=== PATIENT | male | born 1995 | race Caucasian/White ===

== ENCOUNTER 2018-09-10 03:07 | Emergency (ER) | payer OTHER ==
--- NOTE | 2018-09-10 03:27 | ED Physician Documentation ---
PD HPI HEAD INJURY - Stated complaint Stated Complaint: HEAD LAC - Chief complaint Chief Complaint: Trauma Hd/Nk - History obtained from History obtained from: Patient - History of Present Illness Mechanism of head injury: Fell Where head injury occurred: Street Timing - onset: Enter time (23:00) Pain level now: 0 Location of injury: Right Associated symptoms: No: LOC, AMS, Nausea / vomiting, Neck pain Recently seen: Not recently seen - Additional information Additional information: while walking home tonight at approximately 11 PM, tripped and fell, struck face on paved surface, sustaining multiple facial lacerations. denies LOC, denies pain Review of Systems Eyes: reports: Reviewed and negative Ears: reports: Reviewed and negative Nose: denies: Epistaxis Skin: reports: Laceration (s) Musculoskeletal: denies: Neck pain Neurologic: reports: Head injury. denies: Headache, LOC PD PAST MEDICAL HISTORY - Past Medical History Past Medical History: No Cardiovascular: None Respiratory: None Neuro: None Endocrine/Autoimmune: None GI: None : None HEENT: None Psych: None Musculoskeletal: None Derm: None - Past Surgical History Past Surgical History: No - Present Medications Home Medications: Ambulatory Orders Medication Instructions Recorded Confirmed Cephalexin [Keflex] 500 mg PO Q6HR #20 capsule 09/10/18 - Allergies Allergies/Adverse Reactions: Allergies Allergy/AdvReac Type Severity Reaction Status Date / Time No Known Drug Allergies Allergy Verified 09/10/18 03:17 - Social History Does the pt smoke?: Yes Smoking Status: Current every day smoker Does the pt drink ETOH?: Yes Does the pt have substance abuse?: No - Immunizations Immunizations are current?: Yes - POLST Patient has POLST: No PD ED PE NORMAL - Vitals Vital signs reviewed: Yes - General General: Alert and oriented X 3, No acute distress, Well developed/nourished - HEENT HEENT: PERRL, EOMI - Neck Neck: No bony TTP PD ED PE EXPANDED - HEENT HEENT: Other (four lacerations as diagrammed below (2 cm lac supraorbit, 2.5 cm "L"-shaped laceration with horizontal component on right upper eyelid as well as a vertical component lateral to right eye, and two more lacerations that are parallel to the vertical component of the "L"-shaped laceration)) HEENT Visual: 1 - laceration (2.5 cm "z"-shaped laceration without bony tenderness) 2 - laceration (1.5 cm horizontal component to "L"-shaped laceration (this is c ontiguous with laceration 3)) 3 - laceration (1 cm (contiguous with laceration 2)) 4 - laceration (1 cm, vertical) 5 - laceration (0.5 cm vertical laceration) Results - Vitals Vitals: Oxygen O2 Source Room air Procedures - Laceration (location) Face Length in cm: 6.5 (total length of 4 lacerations) Wound type: Contaminated (small particulate matter removed from supraorbital laceration; other lacerations are clean) Neurovascular status: Sensory intact, Motor intact, Vascular intact Anesthesia: Lidocaine 1% Wound Preparation: Chlorhexadine, Irrigated copiously NS, Wound explored, To the base Skin layer closure: Nylon, Other (supraorbital laceration repaired with combination of 5-0 nylon and 6-0 nylon. remainder of lacerations repaired with 6-0 nylon. combination of running and simple interrupted sutures were used) Other: Patient tolerated well, No complications, Neurovascular intact, Dressing applied, Tetanus UTD Complexity: Simple PD MEDICAL DECISION MAKING - ED course Complexity details: considered differential, d/w patient Departure - Departure Disposition: 01 Home, Self Care Clinical Impression: Laceration Condition: Good Instructions: ED Laceration Facial Sutr Tape Follow-Up: [facility] [Provider Group] Prescriptions: Cephalexin [Keflex] 500 mg PO Q6HR #20 capsule Comments: Do not work until cleared to do so by your primary care provider. You should have the wound rechecked in 2-3 days by your primary care provider. The stitches should be removed in 7 days by your primary care provider, although they might extend this recommendation based on how the wound appears on reevaluation. Forms: Activity restrictions Discharge Date/Time: 09/10/18 05:58
[2018-09-10] MEDS ORDERED: LIDOCAINE 1% 2 ML VIAL SUBQ STA (03:45)
[2018-09-10] MEDS ORDERED: BACITRACIN OINT TOP STA (05:46)
[2018-09-10] MEDS ORDERED: cephALEXin 250 MG CAPSULE PO STA (05:46)
[2018-09-10 05:50] VITALS: BP 125/83
== END 2018-09-10 05:58 | disposition home or self-care (01) ==
LOC: ED 03:07
DX: S01.121A Laceration with foreign body of right eyelid and periocular area, initial encounter (principal); S01.111A Laceration without foreign body of right eyelid and periocular area, initial encounter; S01.81XA Laceration without foreign body of other part of head, initial encounter; W01.0XXA Fall on same level from slipping, tripping and stumbling without subsequent striking against object, initial encounter; Y93.01 Activity, walking, marching and hiking; Y92.410 Unspecified street and highway as the place of occurrence of the external cause; F17.200 Nicotine dependence, unspecified, uncomplicated
CPT/HCPCS: 12013; 12051; 99283; A9270

== ENCOUNTER 2019-08-09 10:30 | Emergency (ER) | payer OTHER ==
[2019-08-09 10:41] VITALS: BP 126/77
--- NOTE | 2019-08-09 12:28 | ED Physician Documentation ---
PD HPI LOWER EXT INJURY - Stated complaint Stated Complaint: KNEE PX - Chief complaint Chief Complaint: Ext Problem - History obtained from History obtained from: Patient - History of Present Illness PD HPI LOW EXT INJURY LOCATION: Left, Knee Type of injury: Blunt / blow (he states he struck just top of patellar area yesterday with edge of a box of toys he was carrying. It hurt locally short term, then felt okay. He was able to walk normally today and ran a mile with just some mild discomfort. Then he was squatting under a plane at work and lifted a battery or such in squatted position and felt onset of sharp pain in same area. No pop nor feeling of giving out. That area still hurts when he squats or bends the knee and tries to stand back up.) Timing - onset: Yesterday (with recurrent significant pain today couple hours ago.) Timing - details: Abrupt onset Worsened by: Moving (extending knee from flexed position.), Palpating Associated symptoms: No: Weakness, Numbness, Swelling, Discolored Similar symptoms before: Has not had sx before Recently seen: Not recently seen ([facility] Review of Systems Skin: denies: Rash, Abrasion (s), Laceration (s) Musculoskeletal: denies: Extremity swelling Neurologic: denies: Focal weakness, Numbness PD PAST MEDICAL HISTORY - Past Medical History Cardiovascular: None Respiratory: None Neuro: None Endocrine/Autoimmune: None GI: None : None HEENT: None Psych: None Musculoskeletal: None Derm: None - Past Surgical History Past Surgical History: No - Present Medications Home Medications: Ambulatory Orders Medication Instructions Recorded Confirmed Cephalexin [Keflex] 500 mg PO Q6HR #20 capsule 09/10/18 Naproxen 500 mg PO BID #20 tablet 08/09/19 - Allergies Allergies/Adverse Reactions: Allergies Allergy/AdvReac Type Severity Reaction Status Date / Time No Known Drug Allergies Allergy Verified 08/09/19 10:37 - Social History Does the pt smoke?: Yes Smoking Status: Current every day smoker Does the pt drink ETOH?: Yes Does the pt have substance abuse?: No - Immunizations Immunizations are current?: Yes - POLST Patient has POLST: No PD ED PE NORMAL - Vitals Vital signs reviewed: Yes - General General: Alert and oriented X 3, No acute distress, Well developed/nourished - Derm Derm: Normal color, Warm and dry - Extremities Extremities: Other (left upper patella/suprapatellar area laterally with localized tenderness. No effusion. Patellar tendon feels complete and firm. Extension against resistance hurts but is strong. ) - Neuro Neuro: Alert and oriented X 3, No motor deficit, No sensory deficit, Normal speech Results - Vitals Vitals: Oxygen O2 Source Room air - Rads (name of study) knee xray Radiology: Prelim report reviewed, EMP read contemporaneously (no fractures/avulsions), See rad report PD MEDICAL DECISION MAKING - ED course Complexity details: reviewed results, considered differential (seems likely some patellar tendon inflammation from recent bruising, and is hurting with muscle use. Should be short term process.), d/w patient Departure - Departure Disposition: 01 Home, Self Care Clinical Impression: Patellar tendonitis of left knee Condition: Stable Record reviewed to determine appropriate education?: Yes Instructions: ED Contusion Lower Ext Follow-Up: [facility] [Provider Group] Prescriptions: Naproxen 500 mg PO BID #20 tablet Comments: The x-ray is good without any signs of injury to the patella bone. This sounds like a bruising of the patellar muscle/tendon and it makes sense that it hurts as you are squatting and lifting. Avoid those activities for the next 3 days to give it time to heal. Meanwhile use some anti-inflammatory such as naproxen 2-3 times daily. Add Tylenol if needed. Recheck if not improved over the next several days and if doing well then resume normal activity at that time. Forms: Activity restrictions Discharge Date/Time: 08/09/19 13:22
[2019-08-09] MEDS ORDERED: IBUPROFEN 600 MG TABLET PO STA (12:48)
[2019-08-09] MEDS ORDERED: ACETAMINOPHEN 325 MG TABLET PO STA (12:48)
--- NOTE | 2019-08-09 13:27 | XRAY Report ---
Reason: impact injury patellar area Procedure Date: 08/09/2019 Accession Number: [id number] / [id number] Procedure: XR - Knee 3 View LT CPT Code: FULL RESULT: EXAM: LEFT KNEE RADIOGRAPHY EXAM DATE: 08/09/2019 01:05 PM. CLINICAL HISTORY: Impact injury patellar area. COMPARISON: None. TECHNIQUE: 3 views. FINDINGS: Bones: Normal. No fractures or bone lesions. Joints: Normal. No effusion. No subluxations. Soft Tissues: Normal. No soft tissue swelling. IMPRESSION: Normal knee radiography. [facility]
== END 2019-08-09 13:22 | disposition home or self-care (01) ==
LOC: ED 10:30
DX: M76.52 Patellar tendinitis, left knee (principal); F17.200 Nicotine dependence, unspecified, uncomplicated
CPT/HCPCS: 73562; 99283; A9270

== ENCOUNTER 2020-01-13 10:54 | Emergency (ER) | payer OTHER ==
[2020-01-13 11:09] VITALS: BP 122/80
[2020-01-13] MEDS ORDERED: DEXAMETHASONE 10 MG/ML VIAL PO STA (11:55)
[2020-01-13] MEDS ORDERED: CHERRY SYRUP 10 ML UDC PO ONE (11:55)
--- NOTE | 2020-01-13 11:56 | XRAY Report ---
Reason: cough Procedure Date: 01/13/2020 Accession Number: [id number] / [id number] Procedure: XR - Chest 2 View X-Ray CPT Code: 55928 Final Report FULL RESULT: EXAM: CHEST RADIOGRAPHY EXAM DATE: 01/13/2020 11:45 AM. CLINICAL HISTORY: Cough. COMPARISON: None. TECHNIQUE: 2 views. FINDINGS: Lungs/Pleura: No focal opacities evident. No pleural effusion. No pneumothorax. Normal volumes. Mediastinum: Heart and mediastinal contours are unremarkable. Other: None. IMPRESSION: No acute cardiopulmonary abnormality. [facility]
--- NOTE | 2020-01-13 11:57 | ED Physician Documentation ---
PD HPI URI - Stated complaint Stated Complaint: COUGH - Chief complaint Chief Complaint: Resp - History obtained from History obtained from: Patient - History of Present Illness Timing - onset: How many days ago (2) Timing duration: Days (2) Timing details: Gradual onset, Still present Associated symptoms: Nasal congestion, Sore throat, Productive cough Contributing factors: Sick contact Improves by: Rest, Medication Similar symptoms before: Has not had sx before Recently seen: Not recently seen - Additional information Additional information: Previously well 24-year-old male has become ill with a cough and congestion over the past 2 days he bringing up some yellow-green phlegm he has mostly a cough associated with this the bit of a tickle in the back of his throat he denies any ear pain he denies any fever. Denies any shortness of breath. Review of Systems Constitutional: denies: Fever Eyes: denies: Decreased vision Ears: denies: Ear pain Nose: reports: Rhinorrhea / runny nose, Congestion Throat: reports: Sore throat Cardiac: denies: Chest pain / pressure, Palpitations Respiratory: reports: Cough GI: denies: Abdominal Pain, Nausea, Vomiting : denies: Dysuria PD PAST MEDICAL HISTORY - Past Medical History Past Medical History: No Cardiovascular: None Respiratory: None Neuro: None Endocrine/Autoimmune: None GI: None : None HEENT: None Psych: None Musculoskeletal: None Derm: None - Past Surgical History Past Surgical History: No - Present Medications Home Medications: Ambulatory Orders Medication Instructions Recorded Confirmed Amox/Clav 875/125 [Augmentin] 1 each PO Q12H #20 tablet 01/13/20 - Allergies Allergies/Adverse Reactions: Allergies Allergy/AdvReac Type Severity Reaction Status Date / Time No Known Drug Allergies Allergy Verified 01/13/20 11:09 - Social History Does the pt smoke?: Yes Smoking Status: Current every day smoker Does the pt drink ETOH?: Yes Does the pt have substance abuse?: No - Immunizations Immunizations are current?: Yes - POLST Patient has POLST: No PD ED PE NORMAL - Vitals Vital signs reviewed: Yes (Normal) - General General: Alert and oriented X 3, No acute distress, Well developed/nourished - HEENT HEENT: Atraumatic, PERRL, EOMI, Other (There is inflammation to the right middle ear with distortion of landmarks the left is flush with retained landmarks the pharynx is with minimal erythema.) - Neck Neck: Supple, no meningeal sign, No bony TTP - Cardiac Cardiac: RRR, No murmur - Respiratory Respiratory: No respiratory distress, Clear bilaterally - Abdomen Abdomen: Soft, Non tender - Back Back: No CVA TTP, No spinal TTP - Derm Derm: Normal color, Warm and dry, No rash - Extremities Extremities: No deformity, Normal ROM s pain, No edema, No calf tenderness / cord - Neuro Neuro: Alert and oriented X 3, subscription agent 2-12 intact, No motor deficit, No sensory deficit, Normal speech Eye Opening: Spontaneous Motor: Obeys Commands Verbal: Oriented GCS Score: 15 - Psych Psych: Normal mood, Normal affect Results - Vitals Vitals: Vital Signs - 24 hr 01/13/20 11:05 Temperature 37.4 C Heart Rate 90 Respiratory 16 Rate Blood Pressure 122/80 O2 Saturation 99 Oxygen O2 Source Room air - Rads (name of study) chest Radiology: Prelim report reviewed (Impression no acute cardio pulmonary abnormality.), EMP read indepedently, See rad report PD MEDICAL DECISION MAKING - ED course Complexity details: considered differential, d/w patient ED course: 24-year-old male cough and congestion has otitis on exam is administered dexamethasone 10 mg orally we will place on some Augmentin. Departure - Departure Disposition: 01 Home, Self Care Clinical Impression: Otitis media Qualifiers: Otitis media type: suppurative Chronicity: acute Laterality: bilateral Recurrence: non-recurrent Spontaneous tympanic membrane rupture: without spontaneous rupture Qualified Code(s): H66.003 - Acute suppurative otitis media without spontaneous rupture of ear drum, bilateral Condition: Stable Instructions: ED Otitis Media Acute Adult Follow-Up: [facility] [Provider Group] Prescriptions: Amox/Clav 875/125 [Augmentin] 1 each PO Q12H #20 tablet
== END 2020-01-13 12:03 | disposition home or self-care (01) ==
LOC: ED 10:54
DX: H66.003 Acute suppurative otitis media without spontaneous rupture of ear drum, bilateral (principal); F17.210 Nicotine dependence, cigarettes, uncomplicated
CPT/HCPCS: 71046; 99283; 99284; A9270